=== PATIENT | female | born 1935 | race Asian ===

== ENCOUNTER 2017-02-13 09:36 | Inpatient (IN) | payer OTHER, MEDICARE ==
[~2017-02-13] VITALS: Ht 144.8 cm; Wt 54.4 kg
[~2017-02-13 09:36] MED LIST: ARICEPT10 MG PO; BENICAR HCT1 TA1 PO; CARVEDILOL6.25 M1 PO; CITALOPRAM HYDR10 M1 PO; ELIQUIS2.5 MG PO; FISH OIL1 CAP PO; LIPI20 PO; LORAZEPAM0.5 MG PO; METFORMIN500 M1 PO; PRILOSEC20 MG PO; RENAL CAPS1 SGL PO; SINGULAIR10 MG PO; [UNRECOGNIZED DRUG - CODE] PO
[2017-02-13 11:09] LABS: CALCIUM 8.6 mg/dL (8.5-10.1); CARBON DIOXIDE 25.8 mmol/L (21-32); CHLORIDE SERUM 107 mmol/L (98-107); CREATININE SERUM 1.2 mg/dL (0.6-1.0); GLUCOSE SERUM 134 mg/dL (74-106); POTASSIUM SERUM 4.2 mmol/L (3.5-5.1); SODIUM SERUM 140 mmol/L (136-145)
[2017-02-13 11:12] LABS: BASOPHIL % 0.2 % (0-2); PLATELET COUNT 164 x10^3mcL (130-400); RED CELL DISTRIBUTION WIDTH 13.5 % (11.5-14.5)
[2017-02-13 11:13] LABS: ALBUMIN 3.3 g/dL (3.4-5.0); ALKALINE PHOSPHATASE 60 U/L (46-116); ALT/SGPT 13 U/L (14-59); AST/SGOT 19 U/L (15-37); BILIRUBIN TOTAL 0.35 mg/dL (0.20-1.00); TOTAL PROTEIN, SERUM 6.9 g/dL (6.4-8.2)
[2017-02-13 11:22] LABS: FREE T4 1.19 ng/dL (0.76-1.46); FREE THYROXINE INDEX 2.7 ug/dL (1.4-4.5); T4(THYROXINE) 7.6 ug/dL (4.7-13.3)
[2017-02-13 11:26] LABS: UA SPECIFIC GRAVITY 1.025 (1.005-1.035); microscopic required? YES; urine erythrocyte TRACE (NEGATIVE)
[2017-02-13 11:27] LABS: T3 TOTAL 0.8 ng/mL
[2017-02-13] MEDS ORDERED: MIRTAZAPINE15 M2 PO (12:11)
[2017-02-13] MEDS ORDERED: EXELON4.6 MG/21 TOP (12:11)
[2017-02-13 13:29] VITALS: BP 104/56
[2017-02-13 13:30] LABS: CHOLESTEROL/HDL RATIO 3.4
[2017-02-13] MEDS ORDERED: CARVEDILOL12.5 M1 PO (14:05)
[2017-02-13] MEDS ORDERED: LORAZEPAM1 MG PO (14:06)
[2017-02-13 16:29] LABS: IRON 57 ug/dL (50-170); TOTAL IRON BINDING CAPACITY 292 ug/dL (250-450)
[2017-02-13 18:00] VITALS: BP 117/41
[2017-02-13 18:55] LABS: RED BLOOD CELLS 2.9 M/mm3 (4.10-5.10)
[2017-02-13] MEDS ORDERED: KETOCONAZOLE2% TOP (20:16)
[2017-02-13 21:40] VITALS: BP 105/61
[2017-02-14 04:23] VITALS: BP 147/65
[2017-02-14 06:16] LABS: BASOPHIL % 0.3 % (0-2); PLATELET COUNT 217 x10^3mcL (130-400); RED CELL DISTRIBUTION WIDTH 13.8 % (11.5-14.5)
[2017-02-14 06:29] LABS: CALCIUM 8.4 mg/dL (8.5-10.1); CARBON DIOXIDE 24.3 mmol/L (21-32); CHLORIDE SERUM 106 mmol/L (98-107); GLUCOSE SERUM 131 mg/dL (74-106); PHOSPHOROUS 2.4 mg/dL (2.5-4.9); POTASSIUM SERUM 3.6 mmol/L (3.5-5.1); SODIUM SERUM 139 mmol/L (136-145)
[2017-02-14 08:44] VITALS: BP 158/67
[2017-02-14 12:52] VITALS: BP 93/54
[2017-02-14 16:35] VITALS: BP 158/71
[2017-02-14 21:08] VITALS: BP 137/66
[2017-02-15 05:49] VITALS: BP 190/177
[2017-02-15 06:15] LABS: BASOPHIL % 0.6 % (0-2); PLATELET COUNT 227 x10^3mcL (130-400); RED CELL DISTRIBUTION WIDTH 13.8 % (11.5-14.5)
[2017-02-15 06:33] LABS: CALCIUM 8.5 mg/dL (8.5-10.1); CARBON DIOXIDE 23.2 mmol/L (21-32); CHLORIDE SERUM 105 mmol/L (98-107); CREATININE SERUM 0.9 mg/dL (0.6-1.0); GLUCOSE SERUM 103 mg/dL (74-106); MAGNESIUM 1.7 mg/dL (1.8-2.4); PHOSPHOROUS 2.4 mg/dL (2.5-4.9); POTASSIUM SERUM 3.4 mmol/L (3.5-5.1); SODIUM SERUM 139 mmol/L (136-145)
[2017-02-15 08:28] VITALS: BP 138/68
[2017-02-15 16:59] VITALS: BP 153/68
[2017-02-15 22:00] VITALS: BP 196/93
[2017-02-15 23:09] VITALS: BP 153/82
[2017-02-16 06:35] VITALS: BP 156/78
[2017-02-16 08:41] VITALS: BP 166/81
[2017-02-16 14:06] VITALS: BP 122/63
[2017-02-16] MEDS ORDERED: ROC1I IV (16:33)
[2017-02-16 17:35] VITALS: BP 122/63
== END 2017-02-16 19:35 | DRG 42 ==
LOC: ED 09:36 → DU 12:15 → MU 02-15 11:32
PROVIDERS: Emergency Medicine; Family Medicine; ADMIT Family Medicine
DX: G30.9 Alzheimer's disease, unspecified (principal); N17.0 Acute kidney failure with tubular necrosis; E43 Unspecified severe protein-calorie malnutrition; G93.41 Metabolic encephalopathy; I50.43 Acute on chronic combined systolic (congestive) and diastolic (congestive) heart failure; K31.84 Gastroparesis; E11.43 Type 2 diabetes mellitus with diabetic autonomic (poly)neuropathy; N39.0 Urinary tract infection, site not specified; F02.81 Dementia in other diseases classified elsewhere, unspecified severity, with behavioral disturbance; D64.9 Anemia, unspecified; N18.3 Chronic kidney disease, stage 3 (moderate); I13.0 Hypertensive heart and chronic kidney disease with heart failure and stage 1 through stage 4 chronic kidney disease, or unspecified chronic kidney disease; K21.9 Gastro-esophageal reflux disease without esophagitis; K44.9 Diaphragmatic hernia without obstruction or gangrene; F41.9 Anxiety disorder, unspecified; M81.0 Age-related osteoporosis without current pathological fracture; M19.90 Unspecified osteoarthritis, unspecified site; Z95.0 Presence of cardiac pacemaker; Z86.73 Personal history of transient ischemic attack (TIA), and cerebral infarction without residual deficits; I42.9 Cardiomyopathy, unspecified; Z85.43 Personal history of malignant neoplasm of ovary; Z90.710 Acquired absence of both cervix and uterus; K59.00 Constipation, unspecified; I12.9 Hypertensive chronic kidney disease with stage 1 through stage 4 chronic kidney disease, or unspecified chronic kidney disease
CPT/HCPCS: 36600; 83880; 84439; 92610-GN; 97110-GP; 97116-GP; 97530-GP; J0696; J2060; J2405; J3490; J7030; J8597; Q0092

== ENCOUNTER 2017-04-18 17:23 | Inpatient (IN) | payer OTHER, MEDICARE ==
[~2017-04-18] VITALS: Ht 149.9 cm; Wt 50.0 kg
[~2017-04-18 17:23] MED LIST changes: +CARVEDILOL12.5 M1 PO; +EXELON4.6 MG/21 TOP; +KETOCONAZOLE2% TOP; +LORAZEPAM1 MG PO; +MIRTAZAPINE15 M2 PO; +ROC1I IV
[2017-04-18 17:52] LABS: microscopic required? NO
[2017-04-18 18:02] LABS: UA SPECIFIC GRAVITY 1.015 (1.005-1.035); urine erythrocyte NEGATIVE (NEGATIVE)
[2017-04-18 18:04] LABS: BASOPHIL % 0.6 % (0-2); PLATELET COUNT 229 x10^3mcL (130-400); RED CELL DISTRIBUTION WIDTH 13.1 % (11.5-14.5)
[2017-04-18 18:10] LABS: AMPHETAMINE QUAL UR NONE DETECTED (NEG <=1000)
[2017-04-18 18:13] LABS: CALCIUM 9.3 mg/dL (8.5-10.1); CARBON DIOXIDE 26.7 mmol/L (21-32); CHLORIDE SERUM 101 mmol/L (98-107); CREATININE SERUM 1.2 mg/dL (0.6-1.0); GLUCOSE SERUM 167 mg/dL (74-106); POTASSIUM SERUM 4.5 mmol/L (3.5-5.1); SODIUM SERUM 137 mmol/L (136-145)
[2017-04-18 18:18] LABS: ALBUMIN 3.4 g/dL (3.4-5.0); ALKALINE PHOSPHATASE 76 U/L (46-116); ALT/SGPT 18 U/L (14-59); AST/SGOT 22 U/L (15-37); BILIRUBIN TOTAL 0.2 mg/dL (0.20-1.00); TOTAL PROTEIN, SERUM 7.9 g/dL (6.4-8.2)
[2017-04-18 18:19] LABS: CHOLESTEROL 231 mg/dL (<200)
[2017-04-18] MEDS ORDERED: CARVEDILOL6.25 M1 PO (19:34)
[2017-04-18 20:14] LABS: CHOLESTEROL/HDL RATIO 4.3
[2017-04-18 20:21] LABS: T3 TOTAL 0.88 ng/mL
[2017-04-18 20:22] LABS: FREE T4 1.06 ng/dL (0.76-1.46); FREE THYROXINE INDEX 2.5 ug/dL (1.4-4.5); T4(THYROXINE) 7.2 ug/dL (4.7-13.3)
[2017-04-18 20:48] VITALS: BP 102/46
[2017-04-18 21:19] VITALS: BP 119/69
[2017-04-19 03:20] LABS: PLATELET COUNT 247 x10^3mcL (130-400); RED CELL DISTRIBUTION WIDTH 12.8 % (11.5-14.5)
[2017-04-19 03:24] LABS: BASOPHIL % 2.3 % (0-2)
[2017-04-19 04:22] LABS: CALCIUM 8.4 mg/dL (8.5-10.1); CARBON DIOXIDE 23.3 mmol/L (21-32); CHLORIDE SERUM 111 mmol/L (98-107); GLUCOSE SERUM 102 mg/dL (74-106); PHOSPHOROUS 2.5 mg/dL (2.5-4.9); SODIUM SERUM 144 mmol/L (136-145)
[2017-04-19 05:39] VITALS: BP 159/72
[2017-04-19 09:01] VITALS: BP 145/66
[2017-04-19 13:37] VITALS: BP 139/79
[2017-04-19 22:30] VITALS: BP 132/80
[2017-04-20 06:46] LABS: BASOPHIL % 0.5 % (0-2); PLATELET COUNT 228 x10^3mcL (130-400); RED CELL DISTRIBUTION WIDTH 13.4 % (11.5-14.5)
[2017-04-20 07:03] LABS: CALCIUM 8.3 mg/dL (8.5-10.1); CARBON DIOXIDE 23.2 mmol/L (21-32); CHLORIDE SERUM 113 mmol/L (98-107); GLUCOSE SERUM 87 mg/dL (74-106); MAGNESIUM 1.9 mg/dL (1.8-2.4); PHOSPHOROUS 2.5 mg/dL (2.5-4.9); POTASSIUM SERUM 4.5 mmol/L (3.5-5.1); SODIUM SERUM 145 mmol/L (136-145)
[2017-04-20 07:19] VITALS: BP 168/62
[2017-04-20 09:19] VITALS: BP 172/78
[2017-04-20 14:00] VITALS: BP 182/91
[2017-04-20 21:46] VITALS: BP 116/62
[2017-04-21 06:06] LABS: BASOPHIL % 0.6 % (0-2); PLATELET COUNT 228 x10^3mcL (130-400); RED CELL DISTRIBUTION WIDTH 13.1 % (11.5-14.5)
[2017-04-21 06:08] VITALS: BP 152/75
[2017-04-21 06:30] LABS: CALCIUM 7.9 mg/dL (8.5-10.1); CARBON DIOXIDE 24.6 mmol/L (21-32); CHLORIDE SERUM 107 mmol/L (98-107); GLUCOSE SERUM 95 mg/dL (74-106); MAGNESIUM 1.7 mg/dL (1.8-2.4); PHOSPHOROUS 2.4 mg/dL (2.5-4.9); POTASSIUM SERUM 3.5 mmol/L (3.5-5.1); SODIUM SERUM 141 mmol/L (136-145)
[2017-04-21 14:05] VITALS: BP 117/66
[2017-04-21] MEDS ORDERED: MEGACE400 MG/10 PO (14:38)
[2017-04-21] MEDS ORDERED: BAY PO (14:40)
[2017-04-21 14:48] VITALS: BP 117/66
[2017-04-21] MEDS ORDERED: PRILOSEC OTC20 M1 PO (15:42)
== END 2017-04-21 16:50 | disposition home health service (06) | DRG 42 ==
LOC: ED 17:23 → DU 18:59 → MU 04-20 11:30
PROVIDERS: Family Medicine; Specialist; ADMIT Family Medicine
DX: G30.9 Alzheimer's disease, unspecified (principal); N17.0 Acute kidney failure with tubular necrosis; E43 Unspecified severe protein-calorie malnutrition; G93.41 Metabolic encephalopathy; I13.10 Hypertensive heart and chronic kidney disease without heart failure, with stage 1 through stage 4 chronic kidney disease, or unspecified chronic kidney disease; E11.51 Type 2 diabetes mellitus with diabetic peripheral angiopathy without gangrene; E87.8 Other disorders of electrolyte and fluid balance, not elsewhere classified; E86.0 Dehydration; K21.9 Gastro-esophageal reflux disease without esophagitis; F02.80 Dementia in other diseases classified elsewhere, unspecified severity, without behavioral disturbance, psychotic disturbance, mood disturbance, and anxiety; K59.09 Other constipation; M81.0 Age-related osteoporosis without current pathological fracture; F41.9 Anxiety disorder, unspecified; N18.3 Chronic kidney disease, stage 3 (moderate); M19.90 Unspecified osteoarthritis, unspecified site; N39.0 Urinary tract infection, site not specified; K44.9 Diaphragmatic hernia without obstruction or gangrene; D64.9 Anemia, unspecified; E78.5 Hyperlipidemia, unspecified; E83.42 Hypomagnesemia; E83.39 Other disorders of phosphorus metabolism; D72.819 Decreased white blood cell count, unspecified; Z95.0 Presence of cardiac pacemaker; Z68.22 Body mass index [BMI] 22.0-22.9, adult; Z85.43 Personal history of malignant neoplasm of ovary; Z86.73 Personal history of transient ischemic attack (TIA), and cerebral infarction without residual deficits; Z90.710 Acquired absence of both cervix and uterus
CPT/HCPCS: 36600; 83880; 84439; 97110-GP; 97116-GP; 97530-GP; G0480; J1630; J7030; Q0092

== ENCOUNTER 2017-07-18 11:27 | Inpatient (IN) | payer OTHER, MEDICARE ==
[~2017-07-18] VITALS: Ht 149.9 cm; Wt 50.9 kg
[~2017-07-18 11:27] MED LIST changes: +BAY PO; +MEGACE400 MG/10 PO; +PRILOSEC OTC20 M1 PO
--- NOTE | 2017-07-18 11:42 | NUR ---
EKG IN PROGRESS IN TRIAGE.
--- NOTE | 2017-07-18 13:07 | NUR ---
STRAIGHT CATH DONE TOLERATED WELL BY PT. URINE COLLECTED AND SENT TO LAB. PT AWAKE AND ALERT FOLLOWS SOME COMMANDS HOWEVER PT HAS DEMENTIA AND IS NORMALLY CONFUSED. PT DOES NOT SPEAK ONLY MOANS AND GROANS PT BIB DAUGHTER DUE TO INCREASED GENERALIZED WEAKNESS AND ABNORMAL BP AND BLOOD GLUCOSE READING AT HOME AND AT DAY CARE. PT SENT TO ED FOR EVAL BY NURSE AT DAYCARE. VSS AT THIS TIME. PT GOWNED ON FULL CM IV EST PATENT FLUSHED WITH 10CC NS WARM BLANKET PROVIDED AND SOCKS PER FAMILIES REQUEST. AWAITING FURTHER MD ORDERS CALL LIGHT IN REACH WILL MONITOR
[2017-07-18] MEDS ORDERED: GLUCOPHAGE XR500 MG PO (13:23)
[2017-07-18] MEDS ORDERED: BENICAR HCT1 TAB PO (13:25)
[2017-07-18] MEDS ORDERED: LIPI10 PO (13:26)
[2017-07-18 13:29] LABS: BASOPHIL % 0.4 % (0-2); PLATELET COUNT 286 x10^3mcL (130-400); RED CELL DISTRIBUTION WIDTH 13.4 % (11.5-14.5)
[2017-07-18 13:38] LABS: CALCIUM 8.9 mg/dL (8.5-10.1); CARBON DIOXIDE 25.4 mmol/L (21-32); CHLORIDE SERUM 99 mmol/L (98-107); GLUCOSE SERUM 151 mg/dL (74-106); POTASSIUM SERUM 3.8 mmol/L (3.5-5.1); SODIUM SERUM 135 mmol/L (136-145)
[2017-07-18 13:57] LABS: CK-MB 0.6 ng/mL (0-3.6)
[2017-07-18 13:58] LABS: ALBUMIN 3.5 g/dL (3.4-5.0); ALKALINE PHOSPHATASE 71 U/L (46-116); ALT/SGPT 17 U/L (14-59); AST/SGOT 24 U/L (15-37); BILIRUBIN TOTAL 0.5 mg/dL (0.20-1.00); TOTAL PROTEIN, SERUM 8.2 g/dL (6.4-8.2)
[2017-07-18 14:12] LABS: microscopic required? YES
[2017-07-18 14:13] LABS: urine erythrocyte NEGATIVE (NEGATIVE)
--- NOTE | 2017-07-18 15:10 | NUR ---
CLARIFIED WITH DR ARREGUIN TO INFUSE NS. PTS DAUGHTER EDUCATED ON MEDICATION AND VERBALIZES UNDERSTANDING.IV SITE PATENT, NO REDNESS OR SWELLING AT SITE.
--- NOTE | 2017-07-18 15:12 | NUR ---
PT LAYING IN BED, EYES OPEN, NO SIGNS OF DISTRESS OR DISCOMFORT. NSR ON CM.
--- NOTE | 2017-07-18 17:21 | NUR ---
DAUGHTER AT BEDSIDE. INCONTINENT OF URINE, PERICARE AND DIAPER CHANGE DONE. TURNED TO POSITION OF COMFORT. NO SIGNS OF DISTRESS. DAUGHTER AWARE THAT PT WILL BE ADMITTED.
--- NOTE | 2017-07-18 18:00 | NUR ---
DR ARREGUIN AT BEDSIDE TO EXPLAIN REASON FOR ADMISSION TO DAUGHTER. DAUGHTER AGREED TO PLAN OF CARE.
--- NOTE | 2017-07-18 18:41 | NUR ---
REPORT CALLED TO AUGIE VALDEZ RN. PT TO BE TRANFERRED AFTER CHANGE OF SHIFT WHEN SITTER IS AVAILABLE.
--- NOTE | 2017-07-18 19:04 | NUR ---
REPORT GIVEN TO AIMEE ZIEGLER RN.
--- NOTE | 2017-07-18 19:05 | NUR ---
IV TO RIGHT AC, PATENT AND INTACT AND IN PLACE.
--- NOTE | 2017-07-18 19:09 | NUR ---
TONEY JO TO CALL THE PTS DAUGHTER WHEN PT GOES UPSTAIRS. JENNIFER [phone]
--- NOTE | 2017-07-18 20:04 | NUR ---
PATIENT SEEN CONFUSED/DISORIENTED, PICKING AT THE LILEN AND LINES. pATIENT WAS WAITING FOR SITTER. TRANSPORTED TO THE ROOM AT THIS TIME.
--- NOTE | 2017-07-18 20:07 | NUR ---
RECEIVED PT FROM ED VIA [employer], CAME IN DUE TO INCREASED WEAKNESS, HIGH BP AND BLOOD SUGAR WHEN PT WAS ON ADULT DAY CARE PER PT'S DAUGHTER. CONFUSED AND DISORIENTED. DOES NOT FOLLOW SIMPLE COMMANDS AT THIS TIME. W/ RIGHT FACIAL DROOP, HAS HX OF CVA. SPEECH IS SLOW AND GARBLED. NO SOB NOTED, LUNG SOUNDS DIMINISHED ON THE BASES. NO S/S OF CHEST PAIN/PRESSURE, NSR ON THE MONITOR. URINE INCONTINENT. SKIN IS DRY AND INTACT. TURNED AND REPOSITIONED ON HER RIGHT SIDE W/ LITTLE WHYTE. DAUGHTER AT BEDSIDE. SIDE RAILS UPX2. CALL LIGHT ON REACH. HOB ELEVATED AT 35 DEG. ENDORSED
--- NOTE | 2017-07-18 20:10 | NUR ---
RECEIVED REPORT FROM JAHAIRA SPRING, IV SITE TO RIGHT AC, PATENT AND INTACT. IV FLUID STARTED PER DOCTOR'S ORDER. BED IN LOWEST POSITION. SITTER AT BEDSIDE FOR SAFETY. WILL CONTINUE TO MONITOR.
[2017-07-18 20:19] VITALS: BP 140/83
[2017-07-18 20:29] LABS: MAGNESIUM 2.1 mg/dL (1.8-2.4); PHOSPHOROUS 2.9 mg/dL (2.5-4.9)
[2017-07-18 20:30] VITALS: Ht 149.9 cm; Wt 50.9 kg
[2017-07-18 20:30] LABS: CHOLESTEROL/HDL RATIO 4.2
--- NOTE | 2017-07-19 05:08 | NUR ---
PATIENT RESTED IN INTERVALS THROUGHOUT THE NIGHT. NO DISTRESS NOTED. SAFETY AND COMFORT MEASURES MAINTAINED. BED IN LOWEST POSITION. CALL LIGHT WITHIN REACH. SITTER AT BEDSIDE FOR SAFETY. WILL CONTINUE TO MONITOR AND ENDORSE TO NEXT SHIFT NURSE.
[2017-07-19 06:11] VITALS: BP 161/97
[2017-07-19 06:15] LABS: BASOPHIL % 0.4 % (0-2); PLATELET COUNT 276 x10^3mcL (130-400); RED CELL DISTRIBUTION WIDTH 13.6 % (11.5-14.5)
[2017-07-19 06:39] LABS: CALCIUM 8.6 mg/dL (8.5-10.1); CHLORIDE SERUM 107 mmol/L (98-107); GLUCOSE SERUM 118 mg/dL (74-106); POTASSIUM SERUM 3.3 mmol/L (3.5-5.1); SODIUM SERUM 141 mmol/L (136-145)
--- NOTE | 2017-07-19 07:05 | NUR ---
RECEIVED Pt. AAOX2 [place] BAND CONFUSED, RESPIRATIONS EVEN AND UNLABORED. DENIES PAIN/DISCOMFORT AT THIS TIME. NO DISTRESS NOTED. TELE IN PLACE. IVF RUNNING TO IV AT RIGHT WRIST PATENT AND INTACT. IV RIGHT AC SALINE LOCKED. BED LOW/LOCKED. CALL LIGHT IN REACH.
--- NOTE | 2017-07-19 08:15 | NUR ---
Pt. VERY ANXIOUS KEEPS PACING BACK AND FORTH AND TRYING TO GO INTO OTHER PATIENT ROOMS. Pt. YELLING AND LOOKING FOR HER MOTHER, ATTEMPTED TO REORIENT Pt. BUT IS INEFFECTIVE. Pt. REFUSED PO ATIVAN PER EMAR DR. ARGUETA MADE AWARE AWAITING FOR ORDERS.
[2017-07-19 09:33] VITALS: BP 159/85
--- NOTE | 2017-07-19 09:35 | NUR ---
AM MEDICATIONS ADMINISTERED PER EMAR. Pt. C/O PAIN AT RIGHT WRIST IV SITE AND IV LEAKING. IV REMOVED WITH CATH INTACT. NEW IV LINE STARTED TO LEFT HAND 24 G TOLERATED WELL WITH GOOD BLOOD RETURN, RESUMED IVF ORDERED.
--- NOTE | 2017-07-19 10:59 | NUR ---
DR. ARGUETA AT BEDSIDE SEEING Pt.
--- NOTE | 2017-07-19 11:50 | NUR ---
Pt. CALM AND COOPERATIVE AT THIS TIME POST ATIVAN ADMINISTRATION Pt. DAUGHTER AT BEDSIDE VISITING.
--- NOTE | 2017-07-19 12:04 | NUR ---
ECHO PENDING, PREVIOUS 01/2017.
--- NOTE | 2017-07-19 13:48 | NUR ---
Pt. IV AT LEFT HAND SALINE LOCKED. TELE IN PLACE Pt. LEFT FOR CT SCAN NO DISTRESS DURING TRANSFER.
--- NOTE | 2017-07-19 14:00 | NUR ---
Pt. RETURNED FROM CT SCAN RESUMED IVF TO IV LEFT HAND PATENT AND INTACT. Pt. ASYMPTOMATIC AT THIS TIME.
[2017-07-19 14:59] VITALS: BP 140/95
--- NOTE | 2017-07-19 15:50 | NUR ---
Pt. VERY CONFUSED AND ANXIOUS KEEPS TRYING TO GET OOB WITHOUT ASSIST AND PULLING IV LINES, ATTEMPTED REORIENT Pt. INEFFECTIVE. DR. ARGUETA MADE AWARE. ATIVAN SLOW IVP ADMINISTERED PER EMAR, SITTER AT BEDSIDE. WILL CONTINUE TO MONITOR.
[2017-07-19 17:43] VITALS: BP 128/92
--- NOTE | 2017-07-19 17:44 | NUR ---
Pt. TEMP 100 COOLING MEASURES INITIATED ALSO C/O HEADACHE 3/10 SCALE, TYLENOL ADMINISTERED WILL CONTINUE TO MONITOR.
--- NOTE | 2017-07-19 18:13 | NUR ---
Pt. AAOX2 WITH CONFUSION, Pt. CALM AND COOPERATIVE AT THIS TIME. RESPIRATIONS EVEN AND UNLABORED. DENIES MADSEN/DIZZINESS AT THIS TIME. NO DISTRESS NOTED. TELE IN PLACE. IVF RUNNING TO IV AT LEFT HAND PATENT AND INTACT. BED LOW/LOCKED. CALL LIGHT IN REACH. Pt. DAUGHTER AT BEDSIDE.
[2017-07-19 19:45] VITALS: BP 178/74
--- NOTE | 2017-07-19 19:45 | NUR ---
RECEIVED PT AWAKE ALERT TO NAME AND RECOGNIZES FAMILY MEMBER WHO'S AT BEDSIDE.CONFUSED AND DISORIENTED.[place] TO BOTH EARS.APPEARS RESTLESS TRYING TO GET OOB.NURSE AT BEDSIDE TO ASSIST WITH ADLS.BEDALARM ON AT ALL TIMES.SPOKE WITH DAUGHTER ABOUT PLAN OF CARE TONIGHT.AGREEABLE WITH RESTRAINTS ONLY IF NEEDED BUT INFORMED NURSE TO BE CAUTIOUS IN GIVING ATIVAN.PER THEIR PSYCHIATRIST ONLY TOTAL 2MG ATIVAN/24 HOURS.WILL INFORM MD.WILL CONTINUE TO MONITOR.
[2017-07-19 21:00] VITALS: BP 154/78
--- NOTE | 2017-07-19 22:30 | NUR ---
PT VERY RESTLESS TRYING TO GET OOB WITH CONFUSION AND DISORIENTATION.ASSISTED PT TO BR AND VOIDED.WHEELED PT AROUND UNIT AND CALMED DOWN.
--- NOTE | 2017-07-20 00:37 | NUR ---
PT BACK TO BED WITH NURSE AT BEDSIDE TO ASSIST WITH ADL'S.RESTFUL ENVIRONMENT PROVIDED.WILL CONTINUE TO MONITOR.
--- NOTE | 2017-07-20 04:41 | NUR ---
PT SLEPT WELL.NO FALLS/INJURY NOTED.NURSE AT BEDSIDE TO ASSIST WITH ADLS.NO ASE NOTED FROM ROCEPHIN IV ATB.ALL NEEDS ANTICIPATED AND MET.WILL CONTINUE TO MONITOR.
--- NOTE | 2017-07-20 06:14 | NUR ---
PT WOKE UP AGITATED,TRYING TO GET OOB.DAUGHTER REQUESTED TO GIVE PT ATIVAN 1 MG IN AM BEFORE 7AM SO MOTHER WILL BE CALMER ALL DAY.PAGED DR. TRONCOSO RE: DAUGHTERS REQUEST TO GIVE ONLY ATIVAN TOTAL 2MG PO OR IV DAILY.WILL ENDORSE TO AM NURSE.
[2017-07-20 06:17] VITALS: BP 158/84
[2017-07-20 06:18] LABS: BASOPHIL % 0.4 % (0-2); PLATELET COUNT 267 x10^3mcL (130-400); RED CELL DISTRIBUTION WIDTH 13.7 % (11.5-14.5)
[2017-07-20 06:37] LABS: CALCIUM 9.2 mg/dL (8.5-10.1); CARBON DIOXIDE 24.1 mmol/L (21-32); CHLORIDE SERUM 109 mmol/L (98-107); CREATININE SERUM 1.1 mg/dL (0.6-1.0); GLUCOSE SERUM 106 mg/dL (74-106); POTASSIUM SERUM 3.7 mmol/L (3.5-5.1); SODIUM SERUM 145 mmol/L (136-145)
--- NOTE | 2017-07-20 08:00 | NUR ---
RECEIVED PATIENT WHO DOES NOT SPEAK RWANDAN AND IS VERY CONFUSED AND HAS A HISTORY OF DEMENTIA AND IRRATIC RESTLESS BEHAVIOR. PATIENT HAS BEEN WITH A STAFF AT BEDSIDE AND MONITORING AND ASSISTING WITH CARE. HINA OTERO VITALS AT THIST RAMAN AT 98.8, 89, 19, 158/84, 94% ON ROOM AIR. PATIEN AHS BEEN ON ROCEPHIN FOR URINE AND PATIDAYRON TAHS HISTORY OF HTN, PACEMAKER, CAD AND CVA AND CHF. PATGIENT AHS SOME RALES SCATTERED TO THE BILATERAL LUNGS. NO COUGH REPORTED AND PATIENT DOES NTO APPEAR SOB AT THIS TIME. HINA HAS NTOED MILD HYDRONEPHROSIS TO THE KIDNEYS AND PATIENT AHS CHRONIC CHANGES TOT EH BRAIN AND WITH MILD DEFUSE ATROPHY AND PREVIOUS HISTORY OF CVA. PATIENT HAS BEEN ON ATIVAN AND GIVEN A ONE MG DOSING AT 630AM. POSTASSIUM AT THIS TIME AT 3.3, CREATININES AT 1.1, NA AT 35. PATIENT HAS BEEN ON PUREE DIET AND A FEEDER. BLOOD SUGAR AT THIS TIME AT 109. WILL CONTINUE TO MONITOR.
[2017-07-20 08:53] VITALS: BP 140/84
--- NOTE | 2017-07-20 08:59 | NUR ---
SEEN BY THE INTERNS AND DR GORE AND PLAN OF CARE DISCUSSED. PATIENT FOR DISCHARGE HOME TODAY PER THE ATTENDING. PATIENT REMAINS WITH STAFF AT BEDSIDE FOR SAFETY INDICATED.
--- NOTE | 2017-07-20 11:30 | NUR ---
BLOOD SUGAR AT LUNCH AT 81 AND NO COVERAGE WAS INDICATED.
[2017-07-20 12:42] VITALS: BP 140/84
--- NOTE | 2017-07-20 12:44 | NUR ---
DAUGHTER ARRIVED TO SEE PATIENT AND PLAN IS FOR DISCHARGE HOME TODAY. CÉSAR MOON CALM AT THIS TIME.STAFF AT BEDSIDE AND ASSISTING WITH CARE.
--- NOTE | 2017-07-20 13:28 | NUR ---
SPOKE WITH THE DAUGHTER AND SHE WILL BE RETURNING LATER TO TAKE THE PATIENT HOME. SHE WAS TOLD BY THE INTERNS THAT IT WELL BE READY AFTER 4PM TODAY. PATIENT GIVEN HER PATCH PER THE DAUGHTER SHE WAS GETTING IN THE AM AND HAD GOOD CONTROL ALL DAY. SINCE THIS IS THE CASE WTIH THIS PATIENT. STAFF WILL APPLY THE ELIQUIL PATCH NOW AND THE FAMILY CAN CATCH UP TO THE ROUTINE OF PRIOR HOSPITALIZATION. PATIENT SO FAR IS CALM THIS AM AND SHE HAS NOT BEEN ANXIOUS PREVIOUS DAY. PLAN IS FOR DISCHARGE HOME AND THE STAFF WILL CALL THE DAUGHTER WHEN THE PATIEHNT IS READY. THE DAUGHTER STATES SHE IS RETURNING ANYWAY WITH CLOTHING FOR DISCHARGE.
[2017-07-20] MEDS ORDERED: LEVAQUIN750 MG PO (14:03)
[2017-07-20] MEDS ORDERED: LAC PO (14:04)
[2017-07-20] MEDS ORDERED: LISINOPRIL10 MG PO (14:09)
--- NOTE | 2017-07-20 15:17 | NUR ---
CALLED FAMILY TO IMFORM THE PAPERWORK HAS BEEN COMPLETED. PATIENTS IV AND TELE REMOVED. PATIENT IS IN A PLEASANT MOOD AND A STAFF MEMBER AT BEDSIDE HELPING HER WITH HER MEAL. THE SENIOR LOAN OFFICER WANTS TO SPEAK WITH THE FAMILY ON DISCHARGE AND WILL CALL THE SENIOR LOAN OFFICER WHEN SHE ARRIVES.
== END 2017-07-20 15:49 | disposition home or self-care (01) | DRG 42 ==
LOC: ED 11:27 → DU 17:58
PROVIDERS: Emergency Medicine; Family Medicine; ADMIT Family Medicine
DX: G30.9 Alzheimer's disease, unspecified (principal); N17.0 Acute kidney failure with tubular necrosis; G93.41 Metabolic encephalopathy; I42.9 Cardiomyopathy, unspecified; D68.69 Other thrombophilia; I13.10 Hypertensive heart and chronic kidney disease without heart failure, with stage 1 through stage 4 chronic kidney disease, or unspecified chronic kidney disease; N18.3 Chronic kidney disease, stage 3 (moderate); E11.22 Type 2 diabetes mellitus with diabetic chronic kidney disease; E11.65 Type 2 diabetes mellitus with hyperglycemia; N39.0 Urinary tract infection, site not specified; E78.5 Hyperlipidemia, unspecified; R00.1 Bradycardia, unspecified; K21.9 Gastro-esophageal reflux disease without esophagitis; M19.90 Unspecified osteoarthritis, unspecified site; Z95.0 Presence of cardiac pacemaker; Z68.22 Body mass index [BMI] 22.0-22.9, adult; Z79.84 Long term (current) use of oral hypoglycemic drugs; F02.80 Dementia in other diseases classified elsewhere, unspecified severity, without behavioral disturbance, psychotic disturbance, mood disturbance, and anxiety; M81.0 Age-related osteoporosis without current pathological fracture; E87.1 Hypo-osmolality and hyponatremia
CPT/HCPCS: 36600; 83880; J0696; J1956; J2060; J7030; Q0092

== ENCOUNTER 2017-09-16 11:26 | Inpatient (IN) | payer MEDICARE, OTHER ==
[~2017-09-16] VITALS: Ht 149.9 cm; Wt 43.6 kg
[~2017-09-16 11:26] MED LIST changes: +BENICAR HCT1 TAB PO; +GLUCOPHAGE XR500 MG PO; +LAC PO; +LEVAQUIN750 MG PO; +LIPI10 PO; +LISINOPRIL10 MG PO
--- NOTE | 2017-09-16 11:30 | NUR ---
PT BIB [facility] FROM LOCAL [facility]ULT DAY [facility]ARE WITH C/O CHEST PAIN. PER EMS: ACCORDING TO DAYCARE STAFF, PT WALKED INTO RESTROOM AND THEN WALKED OUT HOLDING CHEST AND REPORTS CHEST PAIN. PT HAS HX OF DEMENTIA AND PRESENTS SLEEY BUT EASILY ARROUSABLE WITH INCOHERANT SPEACH. PER EMS: PT IS ONLY ABLE TO STS NAME, WHICH IS NORMAL FOR PT. RESP EVEN AND UNLABORED, RA. PAIN IS PROVOKABLE TO L SIDE AND UPON PALPATION, PT IS NOTICED TO [place]. NO SIGN OF PAIN TO ABD UPON PALPATION. PT IS NOTED TO BE IN DIAPER.
--- NOTE | 2017-09-16 11:32 | NUR ---
EKG IN PROGRESS
--- NOTE | 2017-09-16 11:50 | NUR ---
PT DAUGHTER NOW AT BEDSIDE. REPORTS PT HAS C/O CHEST PAIN X3 DAYS AND HAS BEEN POINTING TO PACEMAKER LOCATION
--- NOTE | 2017-09-16 11:55 | NUR ---
MED REC UPDATED WITH RX LIST BROUGHT IN WITH PT BY ULISES
--- NOTE | 2017-09-16 12:00 | NUR ---
DR HERNADEZ AT BEDSIDE FOR MSE
--- NOTE | 2017-09-16 12:06 | NUR ---
LAB AT BEDSIDE
--- NOTE | 2017-09-16 12:16 | NUR ---
PT TAKEN FOR CT SCAN BY [facility]
[2017-09-16 12:27] LABS: BASOPHIL % 0.4 % (0-2); PLATELET COUNT 225 x10^3mcL (130-400); RED CELL DISTRIBUTION WIDTH 12.7 % (11.5-14.5)
--- NOTE | 2017-09-16 12:47 | NUR ---
VERBAL CONSENT OBTAINED FOR STRAIGHT CATH ON PT TO COLLECT URINE FORM PT DAUGHTER. HOWEVER DAUGHTER IS REQUESTING SOMETHING TO HELP PT RELAX PT IS MODERATELY AGITATED. DR HERNADEZ MADE AWARE AND PLACED ORDER FOR ATIVAN 0.5MG IV
--- NOTE | 2017-09-16 13:03 | NUR ---
STUDENT RN AND INSTRCUTOR AT BEDSIDE FOR STRAIGHT CATH FOR URINE COLLECTION
[2017-09-16 13:26] LABS: CALCIUM 9.3 mg/dL (8.5-10.1); CARBON DIOXIDE 30.8 mmol/L (21-32); CHLORIDE SERUM 103 mmol/L (98-107); CREATININE SERUM 1.2 mg/dL (0.6-1.0); GLUCOSE SERUM 109 mg/dL (74-106); POTASSIUM SERUM 4.8 mmol/L (3.5-5.1); SODIUM SERUM 137 mmol/L (136-145)
[2017-09-16 13:30] LABS: ALBUMIN 3.4 g/dL (3.4-5.0); ALKALINE PHOSPHATASE 74 U/L (46-116); ALT/SGPT 18 U/L (14-59); AST/SGOT 23 U/L (15-37); BILIRUBIN TOTAL 0.45 mg/dL (0.20-1.00); LIPASE 312 IU/L (73-393); TOTAL PROTEIN, SERUM 7.9 g/dL (6.4-8.2)
--- NOTE | 2017-09-16 13:30 | NUR ---
PT IN STABLE CONDITION. RESP EVEN AND UNLABORED, RA. VS STABLE. NAD NOTED
[2017-09-16 13:42] LABS: microscopic required? NO
[2017-09-16 13:58] LABS: UA SPECIFIC GRAVITY <=1.005 (1.005-1.035); urine erythrocyte NEGATIVE (NEGATIVE)
--- NOTE | 2017-09-16 14:40 | NUR ---
PT IN STABLE CONDITION. RESP EVEN AND UNLABORED, RA. PIKE NOTED. DAUGHTER AT BEDSIDE
[2017-09-16 15:26] LABS: MAGNESIUM 2.4 mg/dL (1.8-2.4); PHOSPHOROUS 3.7 mg/dL (2.5-4.9)
--- NOTE | 2017-09-16 15:30 | NUR ---
REPORT GIVEN TO ZEN MASON IN [facility] FOR CONTINUITY OF CARE
[2017-09-16 15:37] LABS: FREE T4 1.18 ng/dL (0.76-1.46); FREE THYROXINE INDEX 3.2 ug/dL (1.4-4.5); T4(THYROXINE) 8.2 ug/dL (4.7-13.3)
[2017-09-16 15:39] LABS: T3 TOTAL 0.79 ng/mL
--- NOTE | 2017-09-16 15:45 | NUR ---
PT WAS RECEIVED FROM ED BY PRIMARY NURSE ZEN. PT CAME IN DUE TO LEFT SIDED CHEST PAIN. PT IS CONFUSED, ORIENTED TO PERSON ONLY. ABLE TO FOLLOW SIMPLE COMMANDS. NO SOB NOTED. C/O LEFT SIDED CHEST PAIN, NON-RADIATING, PT UNABLE TO GIVE PAIN SCALE. PACED ON DEMAND ON THE MONITOR, HR AT 65. DENIES ABDOMINAL DISCOMFORT. URINE INCONTINENT. PT HAS A MILD DISCOLORATION ON BUTTOCKS AND COCCYX, PREPARER SAMPLES AND REPAIRS. SIDE RAILS UPX2. CALL LIGHT ON REACH. HOB ELEVATED AT 30 DEG. BED ALARM ON. ENDORSED.
--- NOTE | 2017-09-16 16:00 | NUR ---
ASSUMED PT. CARE RECIEVED PT. AWAKE,ALERT BUT CONFUSED AND DISORIENTED.ABLE TO VERBALIZED SIMPLE COMMAND.ON TEL.#8 PACED ON DEMAND STILL COMPLAINING OF CHEST PAIN. DR. EMED HERE AND SEEN THE PT.AND MADE AWARE FAMILY AT BEDSIDE.MEDICATED W/ NORCO ORDERED FOR PAIN. PUT ON IV FLUIDS NS AT 100 CC/HR. ORIENTED PT. TO ROOM AND SURROUNDINGS.CALL LIGHT W/ IN REACH.SR. UP WILL CONT. PLAN OF CARE.
[2017-09-16 16:02] VITALS: BP 134/59
[2017-09-16 16:09] VITALS: Ht 149.9 cm; Wt 43.6 kg
--- NOTE | 2017-09-16 17:57 | NUR ---
PT. RESTING COMFORTABLY IN BED. DAUGHTER AT BEDSIDE ASSISTED HER FOR DINNER.DENIES ANY CHEST PAIN AT THIS TIME.CALL LIGHT W/ IN REACH.NO ACUTE DISTRESS MOTED.
--- NOTE | 2017-09-16 19:57 | NUR ---
RECEIVED PATIENT AWAKE, ALERT, ORIENTED TO PERSON ONLY. RESPIRATION EVEN AND UNLABORED, ON ROOM. ONGOING 0.9% NS AT 90 CC/HR INFUSING WELL AT THE RIGHT HAND. HARD OF HEARING. MAKES INCOMPREHENSIBLE SOUND. INCONTINENT OF URINE. GENERALIZED WEAKNESS. MILD DISOCOLORATION TO BUTTOCKS AND COCCYX. SCD'S TO BLE. ASSISTED WITH NEEDS. 1:1 SITTER AT THE BEDSIDE. ON TELE #9. WILL CONTINUE TO MONITOR.
[2017-09-16 20:06] VITALS: BP 128/57
[2017-09-17 05:10] VITALS: BP 135/66
[2017-09-17 06:33] LABS: CALCIUM 8.4 mg/dL (8.5-10.1); CARBON DIOXIDE 23.3 mmol/L (21-32); CHLORIDE SERUM 108 mmol/L (98-107); GLUCOSE SERUM 117 mg/dL (74-106); POTASSIUM SERUM 4.3 mmol/L (3.5-5.1); SODIUM SERUM 139 mmol/L (136-145)
[2017-09-17 06:48] LABS: BASOPHIL % 0.4 % (0-2); PLATELET COUNT 211 x10^3mcL (130-400); RED CELL DISTRIBUTION WIDTH 12.5 % (11.5-14.5)
--- NOTE | 2017-09-17 07:45 | NUR ---
AWAKE,ALERT ,CONFUSED AND DISORIENTED ,ABLE TO FOLLOW SIMPLE COMMAND,DENIES CHEST PAIN AT THIS TIME. ,INCONT. OF URINE KEEP CLEAN AND DRY,CONT. IV FLUIDS ASORDERED.NO ACUTE RESP. DITRESS NOTED. WILL CONT. PLAN OF CARE.
--- NOTE | 2017-09-17 09:00 | NUR ---
DR. SALEEM HERE MADE ROUNDS W/ OTHER MEDICAL STAFF AND UPDATED PT. PLAN OF CARE
[2017-09-17 10:08] VITALS: BP 192/91
--- NOTE | 2017-09-17 12:00 | NUR ---
PT. CONFUSED AND VERY TALKATIVE ATTEMPTED TO GET OUT OF BED ,ALL SR UP 1;1 SITTER AT BEDSIDE. INCONT. OF URINE KEEP CLEAN AND DRY.FEED PT. FOR LUNCH EAT FAIRLY.
[2017-09-17 14:00] VITALS: BP 133/49
[2017-09-17 16:28] VITALS: BP 139/73
--- NOTE | 2017-09-17 18:21 | NUR ---
PT. MOVED TO ROOM 248 A STILL CONFUSED ATTEMPTED TO GET OUT OF BED. PUT PT. IN CHAIR AT BEDSIDE VERY TALKATIVE TRIED TO PULL OUT HER IV ACCES,1:1 SITTER AT BEDSIDE.INCONT. OF URINE KEEP CLEAN AND DRY,
[2017-09-17 22:05] VITALS: BP 130/64
--- NOTE | 2017-09-18 00:53 | NUR ---
PTS IN BED WITH EYES CLOSED , SITTER AT THE BEDSIDE FOR SAFTY , PIV INTACT INFUSING WELL , TELE PACED.
[2017-09-18 06:03] VITALS: BP 160/76
[2017-09-18 06:28] LABS: BASOPHIL % 0.3 % (0-2); PLATELET COUNT 241 x10^3mcL (130-400); RED CELL DISTRIBUTION WIDTH 12.3 % (11.5-14.5)
[2017-09-18 06:46] LABS: CALCIUM 8.7 mg/dL (8.5-10.1); CARBON DIOXIDE 23.6 mmol/L (21-32); CHLORIDE SERUM 111 mmol/L (98-107); CREATININE SERUM 0.9 mg/dL (0.6-1.0); GLUCOSE SERUM 86 mg/dL (74-106); POTASSIUM SERUM 4.1 mmol/L (3.5-5.1); SODIUM SERUM 142 mmol/L (136-145)
--- NOTE | 2017-09-18 07:55 | NUR ---
PT. AWAKE,ALERT CONFUSED AND RESTLESS ,SITTER AT BEDSIDE,INCONT. OF URINE KEEP CLEAN AND DRY.CONT. IV FLUIDS ORDERED. FEED FOR BREAKFAST ATE FAIRLY. NO ACUTE DISTRESS NOTED. WILL CONT. PLAN OF CARE.
[2017-09-18 08:30] VITALS: BP 143/57
--- NOTE | 2017-09-18 09:00 | NUR ---
DR. HUTCHINSON HERE W/ OTHER MEDICAL STAFFS MADE ROUNDS AND UPDATED PT. PLAN OF CARE PT. WILL DISCHARGE HOME TODAY PT. DAUGHTER NOTIFIED AND MADE AWARE.
[2017-09-18] MEDS ORDERED: ECO81 PO (12:55)
[2017-09-18] MEDS ORDERED: COREG12.5 MG PO (12:55)
[2017-09-18] MEDS ORDERED: LIPI10 PO (12:59)
[2017-09-18] MEDS ORDERED: GLUCOPHAGE XR500 MG PO (13:01)
[2017-09-18 13:30] VITALS: BP 143/57
--- NOTE | 2017-09-18 13:49 | NUR ---
PATIENT ALERT, CONFUSED BUT PLEASANT, NO S/S DISTRESS NOTED. DISCHARGED PATIENT AT THIS TIME VIA PRIVATE [employer] ACCOMPANIED BY DAUGHTER WITH STABLE CONDITION. DETAIL DISCHARG INSTRUCTIONS REVIEWED WITH DAUGHTER, SHE VERBALIZED UNDERSTANDING.
== END 2017-09-18 13:55 | disposition home health service (06) | DRG 392 ==
LOC: ED → DU 14:55
PROVIDERS: Emergency Medicine; ADMIT Family Medicine Sports Medicine
DX: K21.9 Gastro-esophageal reflux disease without esophagitis (principal); M81.0 Age-related osteoporosis without current pathological fracture; M19.90 Unspecified osteoarthritis, unspecified site; I48.91 Unspecified atrial fibrillation; E78.5 Hyperlipidemia, unspecified; I12.9 Hypertensive chronic kidney disease with stage 1 through stage 4 chronic kidney disease, or unspecified chronic kidney disease; E11.22 Type 2 diabetes mellitus with diabetic chronic kidney disease; N18.3 Chronic kidney disease, stage 3 (moderate); Z95.0 Presence of cardiac pacemaker; G30.9 Alzheimer's disease, unspecified; F02.80 Dementia in other diseases classified elsewhere, unspecified severity, without behavioral disturbance, psychotic disturbance, mood disturbance, and anxiety; D64.9 Anemia, unspecified; G47.30 Sleep apnea, unspecified; E11.65 Type 2 diabetes mellitus with hyperglycemia
CPT/HCPCS: 84439; 97110-GP; 97530-GP; J2060; J7030; Q0092